=== PATIENT | male | born 1950 | race Caucasian/White ===

== ENCOUNTER → 2019-07-14 | Outpatient (CLI) | payer MEDICARE ==
[~2019-07-14] MED LIST: FENTANYL PF 100 MCG/2ML ONE; FLUMAZENIL 0.1 MG/1 ML, 5ML ONE; GADOTERATE 10 MMOL/20 ML SYR ONE; MIDAZOLAM 1 MG/ML, 5ML ONE; NALOXONE 1 MG/ML, 2ML ONE
== END | disposition home or self-care (01) ==
LOC: RAD 08:25
PROVIDERS: ATTEND Psychiatry & Neurology Neurology
DX: H49.11 Fourth [trochlear] nerve palsy, right eye (principal); H53.2 Diplopia
CPT/HCPCS: 70543; 70553; 99156; 99157; A9575; J2250; J3010; J2310